=== PATIENT | female | born 1960 | race Caucasian/White ===

== ENCOUNTER 2017-09-27 02:02 | Emergency (ER) | payer BC, OTHER ==
[~2017-09-27] VITALS: Ht 170.2 cm; Wt 88.0 kg
[~2017-09-27 02:02] MED LIST: ATEN1TAB73 PO; LAMO100 PO; SYNT112T PO; [UNRECOGNIZED DRUG - REMARK]
[2017-09-27 02:14] VITALS: BP 219/88; PULSE 89; RESP 18; TEMP 97.3; O2SAT 98
[2017-09-27 02:47] VITALS: BP 166/77; PULSE 89; RESP 19; TEMP 97.9; O2SAT 98
[2017-09-27] MEDS ORDERED: LEVO200T4 PO (02:51)
[2017-09-27] MEDS ORDERED: LAMO200T PO (02:51)
[2017-09-27] MEDS ORDERED: LISI10TA3 PO (02:51)
[2017-09-27 02:54] LABS: AUTOMATED NEUTROPHIL # 4.4 TH/MM3 (1.8-7.7); BASOPHIL # 0.1 TH/MM3 (0-0.2); BASOPHIL % 0.7 % (0.0-2.0); EOSINOPHIL # 0.2 TH/MM3 (0-0.4); EOSINOPHIL % 2.4 % (0.0-4.0); HEMATOCRIT 38.5 % (35.0-46.0); LYMPHOCYTE # 3.6 TH/MM3 (1.0-4.8); MEAN CELL VOLUME 91.5 FL (80.0-100.0); MEAN CORPUSCULAR HEMOGLOBIN 30.8 PG (27.0-34.0); MEAN CORPUSCULAR HGB CONC 33.6 % (32.0-36.0); MEAN PLATELET VOLUME 7.3 FL (7.0-11.0); MONO % 5.6 % (0.0-8.0); MONOCYTE # 0.5 TH/MM3 (0-0.9); NEUT % 50.3 % (16.0-70.0); PLATELET COUNT 232 TH/MM3 (150-450); RED BLOOD COUNT 4.21 MIL/MM3 (4.00-5.30); RED CELL DISTRIBUTION WIDTH 13.1 % (11.6-17.2); WHITE BLOOD COUNT 8.7 TH/MM3 (4.0-11.0)
[2017-09-27 03:07] LABS: BLOOD UREA NITROGEN 25 MG/DL (7-18); CALCIUM 8.8 MG/DL (8.5-10.1); CHLORIDE 105 MEQ/L (98-107); CREATININE 0.95 MG/DL (0.50-1.00); GLOMERULAR FILTRATION RATE 61 ML/MIN (>89); GLUCOSE,RANDOM 141 MG/DL (74-106); SODIUM (NA) 141 MEQ/L (136-145)
[2017-09-27 03:08] LABS: TROPONIN I LESS THAN 0.02 NG/ML (0.02-0.05)
--- NOTE | 2017-09-27 03:28 | PD ---
HPI Chief Complaint: Cardiac Complaint Time Seen by Provider: 02:54 Travel History International Travel<30 days: No Contact w/Intl Traveler<30days: No Traveled to known affect area: No History of Present Illness HPI The patient is a 57 year old male who presents to the [facility] emergency department with a history of palpitations that she reports have been coming and going usually in the evenings for the last 2 weeks. She reports that this evening the palpitations seem to be more severe and persistent. The patient reports that this is the first time she is being evaluated for this. Her primary care physician is Dr. Viktoriya Reyes. Her only recent changes in medication have weeks having her big toes that discontinued and starting Bydureon it was not helping her blood sugar, therefore she was switched to another diabetic medication that she cannot recall the name of. She reports that it is an injectable medication. The patient denies having any chest pain or chest pressure. She denies having any shortness of breath. She reports that the palpitations feel like an empty sensation almost like she is going down on a roller coaster, after which she feels her heart racing briefly and then the symptoms seem to go away. She denies any prior history of cardiac arrhythmia. She denies any history of [place]. She cannot recall ever having a stress test. She does have a history of hypothyroid disorder related to a complete thyroidectomy. She is on thyroid supplement. On review of systems otherwise, the patient denies having any known recent fevers, cough or congestion, neck pain, abdominal pain, vomiting, diarrhea, urinary symptoms, or neurologic symptoms. The patient reports that she does drink sweet tea and diet Coke on a regular basis, however she has recently tapered these down to see if this would help with the palpitations. She denies any alcohol use. Patient reports that she exercises on a regular basis and does not have any symptoms when she does this. [facility] Past Medical History Narrative Medical The patient's past medical history is significant for hypertension, hypothyroid disorder, seizure disorder, diabetes mellitus. Diabetes: Yes (GESTATIONAL DIABETES;(now) "I HAVE HYPERGLYCEMIA, BUT NOT DIABETES") Patient Takes Glucophage: No Diminished Hearing: No Genitourinary: Yes Hypertension: Yes Musculoskeletal: No Neurologic: Yes Reproductive: No Respiratory: No Migraines: Yes Seizures: Yes Thyroid Disease: Yes (LEIA DISEASE, HYPOTHYROIDISM) Tetanus Vaccination: Unknown Influenza Vaccination: No ?: Not LMP: menapause : 2 Para: 2 Past Surgical History Narrative Surgical The patient's past surgical history is significant for 2, cholecystectomy, thyroid surgery 2, left breast biopsy, breast implants. Section: Yes (1991, 1995) Cholecystectomy: Yes Endocrine Surgery: Yes (PARTIAL THYROIDECTOMY" DUE TO LEIA DISEASE") Gynecologic Surgery: Yes ( X2) Other Surgery: Yes Social History Alcohol Use: No Tobacco Use: No Substance Use: No Allergies-Medications (Allergen,Severity, Reaction): Coded Allergies: grass pollen (Unverified Allergy, Severe, Swelling, 09/27/17) Hay allergy penicillin G (Unverified Allergy, Severe, HIVES, EDEMA, 09/27/17) shellfish derived (Unverified Allergy, Severe, 09/27/17) Reported Meds & Prescriptions Reported Meds & Active Scripts Active Reported Levothyroxine (Levothyroxine Sodium) 200 Mcg Tab 200 Mcg PO DAILY Lamotrigine 200 Mg Tab 300 Mg PO BID Lisinopril 10 Mg Tab 10 Mg PO DAILY [Unk.diabetic Med] [Unk.diabetic Med] Review of Systems General / Constitutional: No: Fever Eyes: No: Visual changes HENT: No: Headaches Cardiovascular: Positive: Palpitations, Irregular Rhythm, Tachycardia, No: Chest Pain or Discomfort Respiratory: No: Shortness of Breath Gastrointestinal: No: Abdominal Pain Genitourinary: No: Dysuria Musculoskeletal: No: Pain Skin: No Rash Neurologic: No: Weakness Psychiatric: No: Depression Endocrine: No: Polydipsia Hematologic/Lymphatic: No: Easy Bruising Physical Exam Narrative General: The patient is a well-developed well-nourished female in no acute distress. Head and Neck exam: Head is normocephalic atraumatic. Eyes: EOMI, pupils are equal round and reactive to light. Nose: Midline septum with pink mucous membranes Mouth: Dentition unremarkable. Moist mucus membranes. Posterior oropharynx is not erythematous. No tonsillar hypertrophy. Uvula midline. Airway patent. Neck: No palpable lymphadenopathy. No nuchal rigidity. No thyromegaly. Cardiovascular: Regular rate and rhythm without murmurs, gallops, or rubs. No pulse deficit to the extremities on simultaneous auscultation and palpation of her radial artery. Lungs: Clear to auscultation bilaterally. No wheezes, rhonchi, or rales. Abdomen: Soft, without tenderness to palpation in all 4 quadrants of the abdomen. No guarding, rebound, or rigidity. Normal bowel sounds are audible. No tenderness on palpation of McBurney's point. Extremities: No clubbing, cyanosis, or edema. 2+ pulses in all 4 extremities. No calf tenderness on palpation. Back: No spinous process tenderness to palpation. No costovertebral angle tenderness to palpation. Neurologic Exam: Grossly nonfocal. Skin Exam: No rash noted. Intact skin that is warm and dry. Data Data Last Documented VS Vital Signs Date Time Temp Pulse Resp B/P (MAP) Pulse Ox O2 Delivery O2 Flow Rate FiO2 09/27/17 05:06 72 15 149/72 (97) 95 Room Air 09/27/17 02:47 97.9 Orders Orders Electrocardiogram (09/27/17 02:19) Complete Blood Count With Diff (09/27/17 02:19) Basic Metabolic Panel (Bmp) (09/27/17 02:19) Ckmb (Isoenzyme) Profile (09/27/17 02:19) Troponin I (09/27/17 02:19) Chest, Single Ap (09/27/17 02:19) Iv Access Insert/Monitor (09/27/17 02:19) Ecg Monitoring (09/27/17 02:19) Oxygen Administration (09/27/17 02:19) Oximetry (09/27/17 02:19) Thyroid Stimulating Hormone (09/27/17 02:54) Labs Laboratory Tests Test 09/27/17 00:24 White Blood Count 8.7 TH/MM3 Red Blood Count 4.21 MIL/MM3 Hemoglobin 13.0 GM/DL Hematocrit 38.5 % Mean Corpuscular Volume 91.5 FL Mean Corpuscular Hemoglobin 30.8 PG Mean Corpuscular Hemoglobin Concent 33.6 % Red Cell Distribution Width 13.1 % Platelet Count 232 TH/MM3 Mean Platelet Volume 7.3 FL Neutrophils (%) (Auto) 50.3 % Lymphocytes (%) (Auto) 41.0 % Monocytes (%) (Auto) 5.6 % Eosinophils (%) (Auto) 2.4 % Basophils (%) (Auto) 0.7 % Neutrophils # (Auto) 4.4 TH/MM3 Lymphocytes # (Auto) 3.6 TH/MM3 Monocytes # (Auto) 0.5 TH/MM3 Eosinophils # (Auto) 0.2 TH/MM3 Basophils # (Auto) 0.1 TH/MM3 CBC Comment DIFF FINAL Differential Comment Blood Urea Nitrogen 25 MG/DL Creatinine 0.95 MG/DL Random Glucose 141 MG/DL Calcium Level 8.8 MG/DL Sodium Level 141 MEQ/L Potassium Level 4.3 MEQ/L Chloride Level 105 MEQ/L Carbon Dioxide Level 30.0 MEQ/L Anion Gap 6 MEQ/L Estimat Glomerular Filtration Rate 61 ML/MIN Total Creatine Kinase 47 U/L Troponin I LESS THAN 0.02 NG/ML Thyroid Stimulating Hormone 3rd Gen 0.177 uIU/ML MDM Medical Decision Making Medical Screen Exam Complete: Yes Emergency Medical Condition: Yes Medical Record Reviewed: Yes Differential Diagnosis Premature atrial contractions, versus PVCs, versus paroxysmal atrial fibrillation, versus SVT Narrative Course During the course of the patient's emergency department visit, the patient's history, examination, and differential diagnosis were reviewed with the patient. The patient was placed on a media monitor with oximetry and frequent blood pressure monitoring. The patient had IV access obtained and blood work sent for analysis. The patient had a EKG done on arrival. The patient's EKG reveals a sinus rhythm with a heart rate of 78, QRS duration is 113 ms, QTC [address] segment elevation. The patient's laboratory studies were reviewed and remarkable for a CBC that is within normal limits, CMP is remarkable for BUN of 25, glucose 141, cardiac enzymes within normal limits, TSH is low at 0.177 consistent with over supplementation with her thyroid hormone medication. Radiology studies were reviewed and remarkable for Last Impressions Chest X-Ray 09/27/17 0219 Signed Impressions: CONCLUSION: No acute cardiopulmonary disease identified. The patient's results were discussed with her. On further questioning, the patient reports that she has been feeling flushed, overheated frequently recently which is consistent with her hyperthyroid state. She was instructed to call her primary care physician's office in the morning to schedule a follow- up appointment regarding her low TSH. She is given a copy of her labs for follow-up. The patient is resting comfortably and feels better, is alert and in no distress. The patient's results and examination findings were discussed with the patient. The repeat examination is unremarkable and benign. The history, exam, diagnostic testing, and current condition do not suggest any significant pathology to warrant further testing, continued ED treatment, admission, or surgical evaluation at this point. The vital signs have been stable. The patient does not have uncontrollable pain, intractable vomiting, or other significant symptoms. The patient's condition is stable and appropriate for discharge. The patient will pursue further outpatient evaluation with a primary care physician or other designated or consulting physician as indicated in the discharge instructions. The patient is instructed to report back to the emergency department immediately for reexamination in the mean time if she develops any new or worsening signs or symptoms. The patient expressed understanding and was agreeable with this plan. Diagnosis Primary Impression: Hyperthyroidism Additional Impression: Palpitations Referrals: Primary Care Physician 2 days Patient Instructions: General Instructions, Heart Palpitations (ED), Hyperthyroidism (ED) Disposition: 01 DISCHARGE HOME Condition: Stable Carolynn Santana MD Sep 27, 2017 03:28
--- NOTE | 2017-09-27 04:17 | RADRPT ---
EXAM DATE: 09/27/2017 3:33 AM EDT AGE/SEX: 57 years / Female INDICATIONS: Chest pain, cough. CLINICAL DATA: This is the patient's initial encounter. Patient reports that signs and symptoms have been present for 1 day and indicates a pain score of 4/10. MEDICAL/SURGICAL HISTORY: Hypertension. None. COMPARISON: No prior exams available for comparison. FINDINGS: Single AP view of the chest. The lungs are clear. Cardiomediastinal silhouette within norm al limits. No evidence of pleural effusion or pneumothorax. CONCLUSION: No acute cardiopulmonary disease identified. Electronically signed by: Mick Lemus MD 09/27/2017 4:16 AM EDT
[2017-09-27 05:06] VITALS: BP 149/72; PULSE 72; RESP 15; O2SAT 95
--- NOTE | 2017-09-27 14:17 | EKG ---
Date Performed: 09/27/2017 Time Performed: 02:26:42 PTAGE: 57 years EKG: Sinus rhythm MODERATE INTRAVENTRICULAR CONDUCTION DELAY BORDERLINE ECG No significant change from prior electroca rdiogram. PREVIOUS TRACING : 09/15/2011 15.51 DOCTOR: Faizan Peres Interpretating Date/Time 09/27/2017 14:16:11
== END 2017-09-27 05:54 | disposition home or self-care (01) ==
LOC: NEPE 02:02
DX: E89.0 Postprocedural hypothyroidism (principal); E11.9 Type 2 diabetes mellitus without complications; I10 Essential (primary) hypertension; R07.9 Chest pain, unspecified; Z79.899 Other long term (current) drug therapy
CPT/HCPCS: 71045; 80048; 82550; 84443; 84484; 85025; 93005

== ENCOUNTER 2018-03-01 23:46 | Observation (INO) ==
[2018-03-02 00:10] VITALS: RESP 16
--- NOTE | 2018-03-02 00:37 | XR ---
EXAM DATE: 03/02/2018 12:28 AM EST AGE/SEX: 57 years / Female INDICATIONS: Heart palpitations. CLINICAL DATA: This is the patient's initial encounter. Patient reports that signs and symptoms have been present for 1 day and indicates a pain score of 0/10. MEDICAL/SURGICAL HISTORY: None. None. COMPARISON: None. FINDINGS: A single AP view of the chest demonstrates the lungs to be symmetrically aerated without evidence of mass, infiltrate or effusion. The cardiomediastinal contours are unremarkable. Osseous structures a re intact. CONCLUSION: No acute cardiopulmonary disease. Electronically signed by: Braxton Romero MD 03/02/2018 12:35 AM EST
[2018-03-02 01:00] LABS: Baso # (Auto) 0.1 th/mm3 (0.0-0.2); Baso % (Auto) 0.8 % (0.0-2.0); Eos # (Auto) 0.2 th/mm3 (0.0-0.4); Eos % (Auto) 2.7 % (0.0-4.0); Hematocrit 40.6 % (35.0-46.0); Hemoglobin 13.8 gm/dL (11.6-15.3); Lymph # (Auto) 4.1 th/mm3 (1.0-4.8); Lymph % (Auto) 45.9 % (9.0-44.0); Mean Corpuscular HGB Conc 33.9 % (32.0-36.0); Mean Corpuscular Hemoglobin 31.5 pg (27.0-34.0); Mean Corpuscular Volume 92.9 fL (80.0-100.0); Mean Platelet Volume 7.5 fL (7.0-11.0); Mono # (Auto) 0.5 th/mm3 (0.0-0.9); Mono % (Auto) 5.6 % (0.0-8.0); Platelet Count 227 th/mm3 (150-450); Red Blood Count 4.37 mil/mm3 (4.00-5.30); Red Cell Distribution Width 13.6 % (11.6-17.2); White Blood Count 8.9 th/mm3 (4.0-11.0)
[2018-03-02 01:15] LABS: Activated Partial Thrombo Time 21.3 sec (23.4-31.7); INR 0.9 Ratio; Prothrombin Time 9.3 sec (9.8-11.6)
[2018-03-02 01:36] LABS: Alanine Aminotransferase 43 U/L (10-53); Albumin 4.4 g/dL (3.4-5.0); Alkaline Phosphatase 113 U/L (45-117); Anion Gap 9 meq/L (5-15); Aspartate Aminotransferase 23 U/L (15-37); Blood Urea Nitrogen 18 mg/dL (7-18); Calcium 9.4 mg/dL (8.5-10.1); Chloride 101 meq/L (98-107); Glomerular Filtration Rate 73 mL/min (>89); Glucose,Random 131 mg/dL (74-106); Potassium 3.9 meq/L (3.5-5.1); Sodium 137 meq/L (136-145); Total Protein 9.1 g/dL (6.4-8.2)
[2018-03-02 01:41] LABS: Creatine Kinase 53 U/L (26-192)
--- NOTE | 2018-03-02 02:16 | ED ---
HPI General Chief Complaint: Chest Pain Stated Complaint: Chest Pain Time Seen by Provider: 03/01/18 23:59 Source: patient Mode of arrival: ambulatory Limitations: no limitations History of Present Illness MD complaint: Reports palpitations Onset (ago): day(s) Duration: intermittent and now resolved Severity: moderate Context: Reports occurred during rest and occurred during exertion; Denies awoke with symptoms, recent drug use and change in medication Arrhythmia history: Denies atrial fibrillation, SVT, on anti-coagulants, pacemaker, AICD, history of ablation and history of electrical cardioversion Associated symptoms: Reports chest pain and muscle cramps; Denies shortness of breath, syncope, near-syncope, nausea, vomiting, anxiety, diaphoresis, cough, paresthesias and feeling of impending doom Treatments prior to arrival: Denies vagal maneuvers, propafenone, beta-jay, calcium channel jay, adenosine, amiodarone and cardioversion Related Data Home Medications Medication Instructions Recorded Confirmed aspirin [Spencer Chewable Aspirin] 81 mg PO DAILY 03/02/18 03/02/18 lamotrigine 200 mg PO BID 03/02/18 03/02/18 levothyroxine 200 mcg PO DAILY 03/02/18 03/02/18 lisinopril 10 mg PO DAILY 03/02/18 03/02/18 Allergies Allergy/AdvReac Type Severity Reaction Status Date / Time grass pollen Allergy Severe Swelling Unverified 09/27/17 02:13 penicillin G Allergy Severe HIVES, Unverified 09/27/17 02:13 EDEMA shellfish derived Allergy Severe Unverified 09/27/17 02:13 Review of Systems ROS: all other systems reviewed are negative [facility] Medical History Medical History Diabetes (Acute) Seizure (Acute) Surgical History Surgical History History of thyroidectomy (Acute) Social History Social History Substance History: No History of Abuse Second Hand Smoke Exposure: No Smoking Status: Former smoker How Often Do You Have a Drink Containing Alcohol: Never Recent Travel in [facility] within the Last 8 Weeks: No Recent Out of Country Travel within the Last 8 Weeks: No Immunization History Tetanus Immunization: Unsure Exam Narrative Exam Narrative: GENERAL: Well-nourished, well-developed patient. SKIN: Focused skin assessment warm/dry. HEAD: Normocephalic. EYES: No scleral icterus. No injection or drainage. NECK: Supple, trachea midline. No JVD or lymphadenopathy. CARDIOVASCULAR: Regular rate and rhythm without murmurs, gallops, or rubs. Radial and dorsalis pedis pulses 2+ bilaterally RESPIRATORY: Breath sounds equal bilaterally. No accessory muscle use. GASTROINTESTINAL: Abdomen soft, non-tender, nondistended. MUSCULOSKELETAL: No cyanosis, or edema. BACK: Nontender without obvious deformity. No CVA tenderness. Course Initial Documented Vital Signs Temperature 97.6 F 03/01/18 23:49 Pulse Rate 94 H 03/01/18 23:49 Respiratory Rate 16 03/01/18 23:49 Blood Pressure 194/119 H 03/01/18 23:49 Pulse Oximetry 97 03/01/18 23:49 Last Documented Vital Signs Temperature 98.0 F 03/02/18 12:00 Pulse Rate 68 03/02/18 12:00 Respiratory Rate 16 03/02/18 12:00 Blood Pressure 147/74 H 03/02/18 12:00 Pulse Oximetry 94 L 03/02/18 12:00 Medical Decision Making MDM Narrative Medical decision making narrative: Patient placed on monitoring and evaluation advisor IV access obtained specimens collected and sent for resulting EKG performed shows no acute ST elevation injury pattern does identify occasional P VC Lab values found to be in normal range including troponin I is not elevated Patient feels clinically improved discussed with patient observation admission in view of history of hypertension and dyslipidemia. Patient is agreeable to this and will place in observation via chest pain center per protocol for serial cardiac enzymes Medical Screen Exam Complete: Yes Emergency Medical Condition: Yes Differential Diagnosis Differential Diagnosis: Palpitations, arrhythmia, electrolyte disturbance, thyroid dysfunction, ischemia, ACS, [place] Medical Records Medical records reviewed: Yes I reviewed the patient's medical records. Lab Data Lab results reviewed: Yes I reviewed the patient's lab results. Result diagrams: 03/02/18 00:35 03/02/18 00:35 Lab Results 03/02/18 03/02/18 03/02/18 Range/Units 00:35 00:35 00:35 WBC 8.9 (4.0-11.0) th/mm3 RBC 4.37 (4.00-5.30) mil/mm3 Hgb 13.8 (11.6-15.3) gm/dL Hct 40.6 (35.0-46.0) % MCV 92.9 (80.0-100.0) fL MCH 31.5 (27.0-34.0) pg MCHC 33.9 (32.0-36.0) % RDW 13.6 (11.6-17.2) % Plt Count 227 (150-450) th/mm3 MPV 7.5 (7.0-11.0) fL Neut % (Auto) 45.0 (16.0-70.0) % Lymph % (Auto) 45.9 H (9.0-44.0) % Dubois % (Auto) 5.6 (0.0-8.0) % Eos % (Auto) 2.7 (0.0-4.0) % Baso % (Auto) 0.8 (0.0-2.0) % Neut # (Auto) 4.0 (1.8-7.7) th/mm3 Lymph # (Auto) 4.1 (1.0-4.8) th/mm3 Dubois # (Auto) 0.5 (0.0-0.9) th/mm3 Eos # (Auto) 0.2 (0.0-0.4) th/mm3 Baso # (Auto) 0.1 (0.0-0.2) th/mm3 WBC Differential . Differential Comment Auto diff final PT 9.3 L (9.8-11.6) sec INR 0.9 Ratio APTT 21.3 L (23.4-31.7) sec Sodium 137 (136-145) meq/L Potassium 3.9 (3.5-5.1) meq/L Chloride 101 (98-107) meq/L Carbon Dioxide 27.0 (21.0-32.0) meq/L Anion Gap 9 (5-15) meq/L BUN 18 (7-18) mg/dL Creatinine 0.81 (0.50-1.00) mg/dL Estimated GFR 73 L (>89) mL/min Random Glucose 131 H (74-106) mg/dL Calcium 9.4 (8.5-10.1) mg/dL Magnesium 2.0 (1.5-2.5) mg/dL Total Bilirubin 0.3 (0.2-1.0) mg/dL AST 23 (15-37) U/L ALT 43 (10-53) U/L Alkaline Phosphatase 113 (45-117) U/L Total Creatine Kinase 53 (26-192) U/L Troponin I Less than 0.02 L (0.02-0.05) ng/mL B-Natriuretic Peptide (0-100) pg/mL Total Protein 9.1 H (6.4-8.2) g/dL Albumin 4.4 (3.4-5.0) g/dL 03/02/18 03/02/18 03/02/18 Range/Units 00:35 03:20 06:15 WBC (4.0-11.0) th/mm3 RBC (4.00-5.30) mil/mm3 Hgb (11.6-15.3) gm/dL Hct (35.0-46.0) % MCV (80.0-100.0) fL MCH (27.0-34.0) pg MCHC (32.0-36.0) % RDW (11.6-17.2) % Plt Count (150-450) th/mm3 MPV (7.0-11.0) fL Neut % (Auto) (16.0-70.0) % Lymph % (Auto) (9.0-44.0) % Dubois % (Auto) (0.0-8.0) % Eos % (Auto) (0.0-4.0) % Baso % (Auto) (0.0-2.0) % Neut # (Auto) (1.8-7.7) th/mm3 Lymph # (Auto) (1.0-4.8) th/mm3 Dubois # (Auto) (0.0-0.9) th/mm3 Eos # (Auto) (0.0-0.4) th/mm3 Baso # (Auto) (0.0-0.2) th/mm3 WBC Differential Differential Comment PT (9.8-11.6) sec INR Ratio APTT (23.4-31.7) sec Sodium (136-145) meq/L Potassium (3.5-5.1) meq/L Chloride (98-107) meq/L Carbon Dioxide (21.0-32.0) meq/L Anion Gap (5-15) meq/L BUN (7-18) mg/dL Creatinine (0.50-1.00) mg/dL Estimated GFR (>89) mL/min Random Glucose (74-106) mg/dL Calcium (8.5-10.1) mg/dL Magnesium (1.5-2.5) mg/dL Total Bilirubin (0.2-1.0) mg/dL AST (15-37) U/L ALT (10-53) U/L Alkaline Phosphatase (45-117) U/L Total Creatine Kinase 71 35 (26-192) U/L Troponin I Less than 0.02 L Less than 0.02 L (0.02-0.05) ng/mL B-Natriuretic Peptide 17 (0-100) pg/mL Total Protein (6.4-8.2) g/dL Albumin (3.4-5.0) g/dL Imaging Data Radiologist's impression: Chest X-Ray 03/02/18 00:01 CONCLUSION: No acute cardiopulmonary disease. ECG Data Attestation: I personally reviewed and interpreted this ECG as follows: (EKG: Normal sinus rhythm rate 90 occasional PVC interventricular conduction delay no acute ST elevation or injury pattern) Discharge Plan Discharge Disposition Patient Disposition: 30 Still Patient Discharge Condition Condition: Stable Discharge Order Discharge Orders: Discharge Order (Routine); Ordered 03/02/18 Ordered By: Simba Partida Discharge Details Diagnosis: Chest pain, Palpitations Physicians Team ED Provider: Kerri Alexander Primary Care Provider: Viktoriya Streeter Attending Provider: Isaías Pereyra Status ED Status: Left Department Discharge Information Discharge Date/Time: 03/02/18 06:45
[2018-03-02 04:44] LABS: Creatine Kinase 71 U/L (26-192)
[2018-03-02 07:17] LABS: Creatine Kinase 35 U/L (26-192)
--- NOTE | 2018-03-02 10:27 | P.HPCA ---
History of Present Illness Primary Care Physician: Viktoriya Streeter DO Chief Complaint: Palpitations History of Present Illness: This is a 57-year-old female history of hypothyroidism and having Marti's thyroiditis and is also having thyroidectomy, hypertension, chronic back pain, and seizure disorder with last seizure being about 20 years ago that presents to ED with complaint of palpitations. Patient states yesterday morning was sitting at home she developed palpitations she describes as a feeling have when you go down a steep slope on a roller coaster and then immediate having that sensation her heart began to race. She did not check her heart rate at the time but a few minutes later checked her blood pressure and her blood pressure and heart rate were okay. Denies shortness of breath nausea or diaphoresis. Denied having any discomfort in her chest. States that the symptoms have happened in the past he really cannot recall the outcome. I reviewed records, in September of this year she was seen for the same symptoms. She described the same roller coaster symptom with heart racing. TSH was checked that it was low and was advised to follow-up with her physician for further management. She states she followed up with her doctor which is Dr. Seng Streeter. Labs are taken and nothing was changed while talking and examining the patient she states she had the same symptoms occur. Upon reviewing telemetry, about the same time she had a PC. History of diabetes however he states she has diet controlled. Hypertension, hypothyroidism, chronic back pain, seizure disorder with the last seizure being 20 years ago. Denies coronary artery disease. Denies family history of CAD. She is a non-smoker. - Diagnosis (1) Palpitations (2) Hypothyroidism (3) Hypertension Review of Systems General: Patient denies fevers, chills, and recent travel. HEENT: Patient denies headache, sore throat, difficulty swallowing. Cardiovascular: Denies chest discomfort as mentioned above. Had sensation of heart beating rapidly. No syncope. Denies diaphoresis. Respiratory: Denies shortness of breath or inspirational chest discomfort. Denies coughing wheezing or hemoptysis. GI: Patient denies nausea, vomiting, diarrhea, abdominal pain, bloody stools. Musculoskeletal: Patient denies joint pain or edema. Denies calf pain or edema. Neurovascular: Patient denies numbness, tingling, weakness in extremities. Denies headache. Endocrine: Denies polyuria and polydipsia. Hematologic: Denies easy bruising. Skin: Denies rash or itching. PMFSH - History History Provided By: Patient, Family Member - Medical History Medical History: Medical History (Last Reviewed 03/02/18 @ 02:30 by Kerri Alexander MD) Diabetes Seizure - Surgical History Surgical History: Surgical History (Last Reviewed 03/02/18 @ 02:30 by Kerri Alexander MD) History of thyroidectomy - Tobacco History Second Hand Smoke Exposure: No Tobacco Use In Past 30 Days: No Smoking Status: Former smoker - Alcohol History How Often Do You Have a Drink Containing Alcohol: Never - Substance Use History Substance History: No History of Abuse - Travel History Recent Travel in the [place] Within the Last 8 Weeks: No Recent Travel Out of the Country Within the Last 8 Weeks: No - Immunization History Tetanus Immunization: Unsure Medications and Allergies Active Medications: Active Medications Nitroglycerin (Nitrostat Sl) 0.4 mg SL Q5M PRN PRN Reason: CHEST PAIN Sodium Chloride (Ns Flush) 2 ml IV.FLUSH UNSCH PRN PRN Reason: FLUSH AFTER USING IV ACCESS Sodium Chloride (Ns Flush) 2 ml IV.FLUSH BID IVONE Sodium Chloride (Ns Flush) 2 ml IV.FLUSH PRN PRN PRN Reason: FLUSH AFTER USING IV ACCESS Allergies Allergy/AdvReac Type Severity Reaction Status Date / Time grass pollen Allergy Severe Swelling Unverified 09/27/17 02:13 penicillin G Allergy Severe HIVES, Unverified 09/27/17 02:13 EDEMA shellfish derived Allergy Severe Unverified 09/27/17 02:13 Home Medications Medication Instructions Recorded Confirmed Type aspirin [Spencer Chewable Aspirin] 81 mg PO DAILY 03/02/18 03/02/18 History lamotrigine 200 mg PO BID 03/02/18 03/02/18 History levothyroxine 200 mcg PO DAILY 03/02/18 03/02/18 History lisinopril 10 mg PO DAILY 03/02/18 03/02/18 History Exam Vital signs: Vital Signs 03/01/18 23:49 03/01/18 23:58 03/02/18 00:04 Temperature 97.6 F Pulse Rate 94 H 89 84 Respiratory Rate 16 14 16 Blood Pressure 194/119 H 246/119 H 238/103 H Pulse Oximetry 97 99 100 03/02/18 04:00 03/02/18 07:22 03/02/18 08:00 Temperature 97.8 F Pulse Rate 66 65 82 Respiratory Rate 16 Blood Pressure 144/70 H 138/70 Pulse Oximetry 93 L 96 Intake & Output 03/01/18 03/02/18 03/02/18 18:59 06:59 18:59 Weight 85.275 kg Narrative: GENERAL: This is a well-nourished, well-developed patient, in no apparent distress. Patient speaks in clear complete sentences. Patient is pleasant. HEENT: Head is atraumatic and normocephalic. Neck is supple without lymphadenopathy and trachea is midline. No JVD or carotid bruits. CARDIOVASCULAR: Regular rate and rhythm without murmurs, gallops, or rubs. RESPIRATORY: Clear to auscultation. Breath sounds equal bilaterally. No wheezes , rales, or rhonchi. Chest wall is nontender. No use of accessory muscles. GASTROINTESTINAL: Abdomen is nontender, nondistended. Abdomen soft. No obvious pulsatile mass or bruit. No CVA tenderness. Strong femoral pulses bilaterally. Normal bowel sounds in all quadrants. MUSCULOSKELETAL: Patient is moving upper and lower extremities freely. No calf tenderness or edema, no Homans sign. Strong pulses in upper and lower extremities. NEUROLOGICAL: Patient is alert and oriented. Cranial nerves 2-12 are grossly intact. No focal deficits and speech is clear. SKIN: No rash and turgor is normal. Results 03/02/18 00:35 03/02/18 00:35 Cardiac Enzymes 03/02/18 03/02/18 03/02/18 Range/Units 00:35 00:35 03:20 AST 23 (15-37) U/L Troponin I Less than 0.02 L Less than 0.02 L (0.02-0.05) ng/mL B-Natriuretic Peptide 17 (0-100) pg/mL 03/02/18 Range/Units 06:15 AST (15-37) U/L Troponin I Less than 0.02 L (0.02-0.05) ng/mL B-Natriuretic Peptide (0-100) pg/mL Coagulation 03/02/18 03/02/18 Range/Units 00:35 00:35 PT 9.3 L (9.8-11.6) sec APTT 21.3 L (23.4-31.7) sec B-Natriuretic Peptide 17 (0-100) pg/mL CBC 03/02/18 Range/Units 00:35 WBC 8.9 (4.0-11.0) th/mm3 RBC 4.37 (4.00-5.30) mil/mm3 Hgb 13.8 (11.6-15.3) gm/dL Hct 40.6 (35.0-46.0) % Plt Count 227 (150-450) th/mm3 Neut # (Auto) 4.0 (1.8-7.7) th/mm3 Lymph # (Auto) 4.1 (1.0-4.8) th/mm3 [place] # (Auto) 0.5 (0.0-0.9) th/mm3 Eos # (Auto) 0.2 (0.0-0.4) th/mm3 Baso # (Auto) 0.1 (0.0-0.2) th/mm3 Comprehensive Metabolic Panel 03/02/18 Range/Units 00:35 Sodium 137 (136-145) meq/L Potassium 3.9 (3.5-5.1) meq/L Chloride 101 (98-107) meq/L Carbon Dioxide 27.0 (21.0-32.0) meq/L BUN 18 (7-18) mg/dL Creatinine 0.81 (0.50-1.00) mg/dL Calcium 9.4 (8.5-10.1) mg/dL AST 23 (15-37) U/L ALT 43 (10-53) U/L Alkaline Phosphatase 113 (45-117) U/L Total Protein 9.1 H (6.4-8.2) g/dL Albumin 4.4 (3.4-5.0) g/dL Intake and Output 03/01/18 03/02/18 03/02/18 22:59 06:59 14:59 Other: Weight 85.275 kg - Imaging and Cardiology Imaging: Impressions Chest X-Ray 03/02/18 00:01 CONCLUSION: No acute cardiopulmonary disease. EKG interpretations - EKG EKG shows: sinus rhythm (EKGs are sinus rhythm without significant ST segment depressions or elevations.) Caprini VTE Risk Assessment Caprini VTE Risk Assessment: No/Low Risk (score <= 1) Caprini Risk Assessment Model: Point Value = 1 Point Value = 2 Point Value = 3 Point Value = 5 Age 41-60 Minor surgery BMI > 25 kg/m2 Swollen legs Varicose veins or History of unexplained or recurrent spontaneous Oral contraceptives or hormone replacement Sepsis (< 1 month) Serious lung disease, including pneumonia (< 1 month) Abnormal pulmonary function Acute myocardial infarction Congestive heart failure (< 1 month) History of inflammatory bowel disease Medical patient at bed rest Age 61-74 Arthroscopic surgery Major open surgery (> 45 min) Laparoscopic surgery (> 45 min) Malignancy Confined to bed (> 72 hours) Immobilizing plaster cast Central venous access Age >= 75 History of VTE Family history of VTE Factor V Leiden Prothrombin [id number] Lupus anticoagulant Anticardiolipin antibodies Elevated serum homocysteine Heparin-induced thrombocytopenia Other congenital or acquired thrombophilia Stroke (< 1 month) Elective arthroplasty Hip, pelvis, or leg fracture Acute spinal cord injury (< 1 month) Prophylaxis Regimen: Total Risk Factor Score Risk Level Prophylaxis Regimen 0-1 Low Early ambulation 2 Moderate Order ONE of the following: *Sequential Compression Device (SCD) *Heparin 5000 units SQ BID 3-4 Higher Order ONE of the following medications: *Heparin 5000 units SQ TID *Enoxaparin/Lovenox 40 mg SQ daily (WT < 150 kg, CrCl > 30 mL/min) *Enoxaparin/Lovenox 30 mg SQ daily (WT < 150 kg, CrCl > 10-29 mL/min) *Enoxaparin/Lovenox 30 mg SQ BID (WT < 150 kg, CrCl > 30 mL/min) AND/OR *Sequential Compression Device (SCD) 5 or more Highest Order ONE of the following medications: *Heparin 5000 units SQ TID (Preferred with Epidurals) *Enoxaparin/Lovenox 40 mg SQ daily (WT < 150 kg, CrCl > 30 mL/min) *Enoxaparin/Lovenox 30 mg SQ daily (WT < 150 kg, CrCl > 10-29 mL/min) *Enoxaparin/Lovenox 30 mg SQ BID (WT < 150 kg, CrCl > 30 mL/min) AND *Sequential Compression Device (SCD) Assessment and Plan - Assessment (1) Palpitations Code(s): R00.2 - Palpitations Status: Acute (2) Hypothyroidism Code(s): E03.9 - Hypothyroidism, unspecified Status: Acute (3) Hypertension Code(s): I10 - Essential (primary) hypertension Status: Acute - Plan * Palpitations: Patient has had serial cardiac enzymes and EKGs for ruling out purposes. She denies having any type of chest discomfort. She had the same type of palpitation while I was in examination room that she had that brought her into the ED. Upon reviewing telemetry, PVC occurred about that same time. Another PVC was seen within a few minutes prior to that. She has been seen by Dr. Monaco of cardiology. Holter monitor will be placed and she will follow-up with her PCP for results of the Holter monitor. Return to ED for interval issues. * Hypertension: Continue medication. * Hypothyroidism: Continue medication. She needs to follow-up with her physician for outpatient labs and further management. Patient is stable at this time. She is agreeable to this plan. H&P: Quality - VTE Deep Vein Thrombosis/Pulmonary Embolism Present on Admission: No
[2018-03-02] MEDS ORDERED: Lisinopril 10 MG Tablet PO SCH (10:30)
[2018-03-02] MEDS ORDERED: lamoTRIgine 100 MG Tablet PO SCH (10:45)
--- NOTE | 2018-03-02 11:43 | ECG ---
Date Performed: 03/02/2018 Time Performed: 04:31:43 PTAGE: 57 years EKG: Sinus rhythm WITH OCCASIONAL VENTRICULAR PREMATURE COMPLEXES BORDERLINE ECG No significant change PREVIOUS TRACING : 03/02/2018 00.00 DOCTOR: Mathew Monaco Interpretating Date/Time 03/02/2018 11:42:13
--- NOTE | 2018-03-02 11:43 | ECG ---
Date Performed: 03/02/2018 Time Performed: 06:47:26 PTAGE: 57 years EKG: Sinus rhythm NORMAL ECG No PVCs and no significant change NO PREVIOUS TRACING DOCTOR: Mathew Monaco Interpretating Date/Time 03/02/2018 11:41:57
--- NOTE | 2018-03-02 11:44 | ECG ---
Date Performed: 03/02/2018 Time Performed: 00:00:37 PTAGE: 57 years EKG: Sinus rhythm WITH OCCASIONAL VENTRICULAR PREMATURE COMPLEXES MODERATE INTRAVENTRICULAR CONDUCTION DELAY BORDERLIN E ECG PREVIOUS TRACING : 09/27/2017 02.26 DOCTOR: Mathew Monaco Interpretating Date/Time 03/02/2018 11:43:39
--- NOTE | 2018-03-02 12:02 | P.PNCA ---
Subjective Interval history: 57-year-old young lady presented by physician cold roll catcher with a history of surgically induced hypothyroidism followed by Dr. Reyes. She presents now with episodes of sudden sensations that she describes as feeling like she is dropping on a roller coaster recurring repetitively not related to activities although it is important to note that she has not had any of these when she was active such as walking with her . She was recently told that her thyroid level was high but this was not adjusted by her primary care physician. She denies any other symptoms to suggest hyperthyroid at the current time. Her current presentation is very suggestive of new onset of palpitations quite likely related to thyroid. She has had no symptoms or signs to suggest ischemic heart disease and has currently ruled out by ACS protocol. After somewhat extensive discussion with the patient and her the decision was made to discharge her on a Holter monitor with the report to go to her primary care physician and follow-up with her primary care physician for reevaluation of her thyroid level and treatment. Further testing at this time was discussed but they prefer a conservative approach to further evaluation is suggested. Medications and Allergies Active Medications: Active Medications Lamotrigine (Lamictal) 200 mg PO BID [facility] Last Admin: 03/02/18 10:56 Dose: 200 mg Levothyroxine Sodium (Synthroid) 200 mcg PO DAILY@0600 [facility] Last Admin: 03/02/18 10:56 Dose: 200 mcg Lisinopril (Prinivil) 10 mg PO DAILY [facility] Last Admin: 03/02/18 10:56 Dose: 10 mg Nitroglycerin (Nitrostat Sl) 0.4 mg SL Q5M PRN PRN Reason: CHEST PAIN Sodium Chloride (Ns Flush) 2 ml IV.FLUSH UNSCH PRN PRN Reason: FLUSH AFTER USING IV ACCESS Sodium Chloride (Ns Flush) 2 ml IV.FLUSH BID [facility] Last Admin: 03/02/18 10:57 Dose: 2 ml Sodium Chloride (Ns Flush) 2 ml IV.FLUSH PRN PRN PRN Reason: FLUSH AFTER USING IV ACCESS Allergies Allergy/AdvReac Type Severity Reaction Status Date / Time grass pollen Allergy Severe Swelling Unverified 09/27/17 02:13 penicillin G Allergy Severe HIVES, Unverified 09/27/17 02:13 EDEMA shellfish derived Allergy Severe Unverified 09/27/17 02:13 Home Medications Medication Instructions Recorded Confirmed Type aspirin [Spencer Chewable Aspirin] 81 mg PO DAILY 03/02/18 03/02/18 History lamotrigine 200 mg PO BID 03/02/18 03/02/18 History levothyroxine 200 mcg PO DAILY 03/02/18 03/02/18 History lisinopril 10 mg PO DAILY 03/02/18 03/02/18 History Physical Exam Vital signs: Vital Signs 03/01/18 23:49 03/01/18 23:58 03/02/18 00:04 Temperature 97.6 F Pulse Rate 94 H 89 84 Respiratory Rate 16 14 16 Blood Pressure 194/119 H 246/119 H 238/103 H Pulse Oximetry 97 99 100 03/02/18 04:00 03/02/18 07:22 03/02/18 08:00 Temperature 97.8 F Pulse Rate 66 65 82 Respiratory Rate 16 Blood Pressure 144/70 H 138/70 Pulse Oximetry 93 L 96 Intake & Output 03/01/18 03/02/18 03/02/18 18:59 06:59 18:59 Weight 85.275 kg Narrative: Physical examination was reviewed and is as dictated in the record additional notes include that her hair did not appear to be particularly thin, there was no loss of lateral eyebrows, conjugate gaze was intact, would like appropriate, deep tendon reflexes appeared to be normal skin texture and turgor appeared to be normal. Results 03/02/18 00:35 03/02/18 00:35 Cardiac Enzymes 03/02/18 03/02/18 03/02/18 Range/Units 00:35 00:35 03:20 AST 23 (15-37) U/L Troponin I Less than 0.02 L Less than 0.02 L (0.02-0.05) ng/mL B-Natriuretic Peptide 17 (0-100) pg/mL 03/02/18 Range/Units 06:15 AST (15-37) U/L Troponin I Less than 0.02 L (0.02-0.05) ng/mL B-Natriuretic Peptide (0-100) pg/mL Coagulation 03/02/18 03/02/18 Range/Units 00:35 00:35 PT 9.3 L (9.8-11.6) sec APTT 21.3 L (23.4-31.7) sec B-Natriuretic Peptide 17 (0-100) pg/mL CBC 03/02/18 Range/Units 00:35 WBC 8.9 (4.0-11.0) th/mm3 RBC 4.37 (4.00-5.30) mil/mm3 Hgb 13.8 (11.6-15.3) gm/dL Hct 40.6 (35.0-46.0) % Plt Count 227 (150-450) th/mm3 Neut # (Auto) 4.0 (1.8-7.7) th/mm3 Lymph # (Auto) 4.1 (1.0-4.8) th/mm3 [place] # (Auto) 0.5 (0.0-0.9) th/mm3 Eos # (Auto) 0.2 (0.0-0.4) th/mm3 Baso # (Auto) 0.1 (0.0-0.2) th/mm3 Comprehensive Metabolic Panel 03/02/18 Range/Units 00:35 Sodium 137 (136-145) meq/L Potassium 3.9 (3.5-5.1) meq/L Chloride 101 (98-107) meq/L Carbon Dioxide 27.0 (21.0-32.0) meq/L BUN 18 (7-18) mg/dL Creatinine 0.81 (0.50-1.00) mg/dL Calcium 9.4 (8.5-10.1) mg/dL AST 23 (15-37) U/L ALT 43 (10-53) U/L Alkaline Phosphatase 113 (45-117) U/L Total Protein 9.1 H (6.4-8.2) g/dL Albumin 4.4 (3.4-5.0) g/dL Intake and Output 03/01/18 03/02/18 03/02/18 22:59 06:59 14:59 Other: Weight 85.275 kg - Imaging and Cardiology Imaging: Impressions Chest X-Ray 03/02/18 00:01 CONCLUSION: No acute cardiopulmonary disease. Assessment and Plan - Assessment (1) Palpitations Code(s): R00.2 - Palpitations Status: Acute Plan: Patient will be discharged on a Holter monitor for 24-hour evaluation with follow-up with her primary care physician and reevaluation of her thyroid levels. If further cardiac evaluation is necessary outpatient follow-up with cardiology can be arranged by her primary. (2) Hypothyroidism Code(s): E03.9 - Hypothyroidism, unspecified Status: Acute (3) Hypertension Code(s): I10 - Essential (primary) hypertension Status: Acute - Plan * Palpitations: Patient has had serial cardiac enzymes and EKGs for ruling out purposes. She denies having any type of chest discomfort. She had the same type of palpitation while I was in examination room that she had that brought her into the ED. Upon reviewing telemetry, PVC occurred about that same time. Another PVC was seen within a few minutes prior to that. She has been seen by Dr. Monaco of cardiology. Holter monitor will be placed and she will follow-up with her PCP for results of the Holter monitor. Return to ED for interval issues. * Hypertension: Continue medication. * Hypothyroidism: Continue medication. She needs to follow-up with her physician for outpatient labs and further management. Patient is stable at this time. She is agreeable to this plan.
[2018-03-02 12:15] VITALS: BP 147/74; PULSE 68; TEMP 98; O2SAT 94
--- NOTE | 2018-03-04 16:31 | HM ---
Date Performed: 03/02/2018 Time Performed: 13:21:00 HOOKUP DATE: 03/02/18 01:21:00 PM [facility] ANALYSIS START TIME: 03/02/2018 1:26:00 PM ANALYSIS END TIME: 03/03/2018 1:16:21 PM PATIENT AGE: 57 PATIENT HEIGHT PATIENT WEIGHT DRUG LIST PATIENT DIAGNOSIS: cp palps TEST NARRATIVE: The patient's average heart rate was 71 BPM. No episodes of tachycardia wer e noted. No episodes of bradycardia were noted. No pauses exceeding 2.0 seconds were noted. 3169 ventricular ectopics, which represented 3% of the total beat count, were noted. The highest sariah tricular ectopic frequency occurred from 10:00 AM to 11:00 AM Fri. During this time 446 VE(s) occurr ed. Ventricular ectopics were observed as 3169 isolated beat(s) only. No couplets or runs were note d. Some of the ventricular beats occurred in bigeminal cycles. 1 supraventricular ectopics, whic h represented < 1% of the total beat count, were noted. The highest supraventricular ectopic frequen cy occurred from 09:00 AM to 10:00 AM Fri. During this time 1 SVE(s) occurred. No episodes of ST depression (defined as -1.0 mm or more) were noted in channel 1. No episodes of ST depression (defi kiara as -1.0 mm or more) were noted in channel 2. No episodes of ST depression (defined as -1.0 mm or more) were noted in channel 3. TEST INTERPRETATION: Agree with narrative The patient has 7 entriesfor feelings of palpitations. On six of those enetries , there were PVC's present,the seventh entry showed only Sinus rhythm . There were other not infrequent PVC's taht were generally isolated with some of bigeminy cycles and no diary entries during those times. No complex ventricular ectopy and only one isolated PAC was see n. Overall this patient has not infrequent PVC's with occasional bigeminy cycles , no complex arrhyt hmias and intermittemnt awareness of her PVC's that were designated by the patient as palpitations. Signed by : Luis Felipe Avina
== END 2018-03-02 12:20 | disposition home or self-care (01) ==
LOC: NEDA 23:46 → NEPC 23:46 → NEDH 03-02 05:40 → NEPGCP 03-02 06:33
PROVIDERS: ADMIT Internal Medicine Cardiovascular Disease; ATTEND Internal Medicine Cardiovascular Disease
DX: R00.2 Palpitations; Z87.891 Personal history of nicotine dependence; E11.9 Type 2 diabetes mellitus without complications; I49.3 Ventricular premature depolarization; E89.0 Postprocedural hypothyroidism; R07.9 Chest pain, unspecified; I10 Essential (primary) hypertension; Z79.82 Long term (current) use of aspirin; M54.9 Dorsalgia, unspecified; G40.909 Epilepsy, unspecified, not intractable, without status epilepticus; G89.29 Other chronic pain